=== PATIENT | male | born 1970 | race Caucasian/White ===

== ENCOUNTER 2016-08-10 11:26 | Inpatient (IN) | payer OTHER ==
[~2016-08-10] VITALS: Ht 165.1 cm; Wt 63.1 kg
[~2016-08-10 11:26] MED LIST: ACIDOPHILUS1 EAC4 PO; ALEVE220 MG PO; BACTRIM,SEPT1 TABLET PO; COGENTIN1 MG PO; CYANOCOBALAM1000 MCG PO; KLONOPIN0.5 M1 PO; KLONOPIN1 MG PO; LOVENOX40 MG/0.4 SC; OMEPRAZOLE20 M2 PO; ORAZINC220 MG PO; PERCOCET 10/1 TABLET PO; PROLIXIN10 MG PO; PROZAC10 MG PO; Percocet 5/325,Endoc PO; SEROQUEL400 MG PO; SIMVASTATIN20 MG PO; SINEQUAN100 MG PO; TEGRETOL200 MG PO; TYLENOL REGULA325 MG PO; VANCOMYCIN1.25 GM/25 IV
[2016-08-10 15:05] LABS: EOSINOPHIL (%) 1.8 % (0-5); EOSINOPHIL COUNT 0.1 K/uL (0-0.3); HEMATOCRIT 37.8 % (38.0-50.0); IMMATURE GRANULOCYTE (%) 0.4 % (0.0-0.7); IMMATURE GRANULOCYTE COUNT 0.2 K/uL; LYMPHOCYTE COUNT 2.2 K/uL (1.0-2.8); MCH 32.2 PG (29.0-34.0); MCHC 34.4 G/DL (30.0-36.0); MCV 93.6 FL (86-99); MEAN PLAT.VOLUME 8.4 uM^3 (9.0-12.4); MONOCYTE (%) 10.2 % (3-12); MONOCYTE COUNT 0.6 K/uL (0-0.8); NEUTROPHIL (%) 47.5 % (45-76); NEUTROPHIL COUNT 2.7 K/uL (1.8-6.4); PLATELET COUNT 357 K/uL (156-360); RBC DIS.WIDTH-CV 14.7 % (11.8-14.6); RED BLOOD COUNT 4.04 M/uL (4.00-5.50); WHITE BLOOD COUNT 5.7 K/uL (4.1-10.2)
[2016-08-10 15:13] LABS: CHLORIDE 88 mEq/L (99-109); POTASSIUM 4.1 mEq/L (3.7-5.4); SODIUM 127 mEq/L (136-147)
[2016-08-10 15:15] LABS: GLUCOSE 95 mg/dL (70-99)
[2016-08-10 15:16] LABS: ANION GAP 14 MEQ/L (2-14)
[2016-08-10 15:19] LABS: GFR ESTIMATE (CALCULATED) > 59 mL/min/; UREA NITROGEN (BUN) 4 mg/dL (9-23)
[2016-08-10] MEDS ORDERED: KLONOPIN1 MG PO (17:21)
[2016-08-10] MEDS ORDERED: KLONOPIN0.5 M1 PO (17:22)
[2016-08-10] MEDS ORDERED: FOLIC ACID1 MG PO (17:25)
[2016-08-11 02:29] VITALS: BP 142/83
[2016-08-11 04:30] VITALS: BP 109/67
[2016-08-11 07:50] VITALS: BP 103/57
[2016-08-11 11:49] VITALS: BP 103/59
[2016-08-11 15:44] VITALS: BP 111/66
[2016-08-11 16:48] LABS: GFR ESTIMATE (CALCULATED) > 59 mL/min/; VANCOMYCIN, TROUGH 11.8 MCG/ML (10-20)
[2016-08-12 00:02] VITALS: BP 116/60
[2016-08-12 15:02] VITALS: BP 148/71
[2016-08-12 23:37] VITALS: BP 107/59
[2016-08-13 00:49] LABS: GFR ESTIMATE (CALCULATED) > 59 mL/min/
[2016-08-13 03:26] LABS: VANCOMYCIN, TROUGH 10.8 MCG/ML (10-20)
[2016-08-13 06:50] LABS: METH RESISTANT S AUREUS PCR POSITIVE (NEGATIVE)
[2016-08-13 06:57] LABS: PROBE CHECK PASS
[2016-08-13 09:00] VITALS: BP 128/82
[2016-08-13 16:00] VITALS: BP 145/72
[2016-08-13 23:06] VITALS: BP 133/73
[2016-08-14 07:25] LABS: GFR ESTIMATE (CALCULATED) > 59 mL/min/
[2016-08-14 07:59] VITALS: BP 140/92
[2016-08-14 12:05] VITALS: BP 138/82
[2016-08-14 13:17] VITALS: BP 147/82
[2016-08-14 16:30] VITALS: BP 137/76
[2016-08-14 20:23] VITALS: BP 127/69
[2016-08-14 22:39] VITALS: BP 128/81
[2016-08-15 08:49] VITALS: BP 128/74
[2016-08-15 09:06] LABS: EOSINOPHIL COUNT 0.6 K/uL (0-0.3); HEMATOCRIT 30.5 % (38.0-50.0); IMMATURE GRANULOCYTE (%) 0.2 % (0.0-0.7); MCH 32.3 PG (29.0-34.0); MCHC 33.1 G/DL (30.0-36.0); MCV 97.4 FL (86-99); MEAN PLAT.VOLUME 8.9 uM^3 (9.0-12.4); MONOCYTE (%) 10.8 % (3-12); MONOCYTE COUNT 0.7 K/uL (0-0.8); NEUTROPHIL (%) 45.9 % (45-76); NEUTROPHIL COUNT 2.8 K/uL (1.8-6.4); PLATELET COUNT 251 K/uL (156-360); RBC DIS.WIDTH-CV 16.2 % (11.8-14.6); RBC DIS.WIDTH-SD 57.4 % (39-53); RED BLOOD COUNT 3.13 M/uL (4.00-5.50)
[2016-08-15 09:26] LABS: ALKALINE PHOSPHATASE 95 IU/L (3-129); ANION GAP 8 MEQ/L (2-14); CHLORIDE 104 MEQ/L (99-109); GFR ESTIMATE (CALCULATED) > 59 mL/min/; GLUCOSE 86 mg/dL (70-99); HDL CHOLESTEROL 30 MG/DL (Desirable>=40); LDL CHOLESTEROL 65 mg/dL (Desirable<100); NON-HDL CHOLESTEROL 87 mg/dL (Desirable<160); POTASSIUM 4.3 MEQ/L (3.7-5.4); SAMPLE HEMOLYSIS CHECK 0; SAMPLE ICTERIC CHECK 0; SAMPLE LIPEMIA CHECK 0; TOTAL BILIRUBIN 0.2 MG/DL (0.0-1.0); TOTAL CHOLESTEROL 117 mg/dL (Desirable<200); TRIGLYCERIDES 112 MG/DL (Normal: <150); UREA NITROGEN (BUN) 5 mg/dL (9-23)
[2016-08-15 09:27] LABS: SODIUM 138 MEQ/L (136-147)
[2016-08-15 15:33] VITALS: BP 153/76
[2016-08-15 23:53] VITALS: BP 126/67
[2016-08-16 09:44] VITALS: BP 119/73
[2016-08-16 17:17] VITALS: BP 139/82
[2016-08-17 00:09] VITALS: BP 108/63
[2016-08-17 07:32] LABS: GFR ESTIMATE (CALCULATED) > 59 mL/min/; UREA NITROGEN (BUN) 7 mg/dL (9-23)
[2016-08-17 09:33] VITALS: BP 125/85
[2016-08-17] MEDS ORDERED: CILOSTAZOL100 MG PO (15:22)
[2016-08-17] MEDS ORDERED: ASPIR-LOW81 MG PO (15:22)
[2016-08-17] MEDS ORDERED: DURICEF500 MG/5 M PO (15:24)
[2016-08-17] MEDS ORDERED: ULTRAM50 MG PO (15:25)
== END 2016-08-17 20:36 | disposition home health service (06) | DRG 239 ==
LOC: EME 11:26 → 2EAST 18:54 → 5EAST 18:54 → EDOF 18:54 → 2EAST 08-11 00:41 → 5EAST 08-11 15:08
PROVIDERS: Internal Medicine; Physician Assistant
DX: I70.262 Atherosclerosis of native arteries of extremities with gangrene, left leg (principal); L03.116 Cellulitis of left lower limb; I77.72 Dissection of iliac artery; I77.1 Stricture of artery; E87.1 Hypo-osmolality and hyponatremia; F20.0 Paranoid schizophrenia; F17.210 Nicotine dependence, cigarettes, uncomplicated; Z89.431 Acquired absence of right foot
CPT/HCPCS: 73630; 73725; 80048; 80053; 80061; 80202; 82565; 83605; 84520; 85025; 87040; 87641; 88305; 88311; 93925; 94799; 99281; 99285; C1725; C1760; C1769; C1894; J1170; J1644; J1650; J2250; J2405; J2543; J3010; J3370; J7030; J7050; S0020